=== PATIENT | female | born 1950 | race Two or more races ===

== ENCOUNTER 2017-02-15 06:36 | Day surgery (SDC) | payer MEDICARE, MEDICAID ==
[2017-02-15 06:58] VITALS: BMI 23.5
[2017-02-15 07:16] VITALS: TEMP 97.8
[2017-02-15 08:48] VITALS: O2SAT 100
[2017-02-15 09:28] VITALS: RESP 14
[2017-02-15 09:58] VITALS: BP 145/74; PULSE 60
[2017-02-15] MEDS ORDERED: Propofol 10 mg/ml Inj (20 ML) ONE (10:45)
== END 2017-02-15 10:20 | disposition home or self-care (01) ==
LOC: C.ENDO 06:36
PROVIDERS: ATTEND Internal Medicine
DX: D13.6 Benign neoplasm of pancreas (principal)
CPT/HCPCS: 43259; J2704

== ENCOUNTER 2017-03-29 06:10 | Day surgery (SDC) | payer MEDICARE, MEDICAID ==
[2017-03-29] MEDS ORDERED: Propofol 10 mg/ml Inj (20 ML) ONE ×3 (09:03→10:04)
[2017-03-29] MEDS ORDERED: Lidocaine Hydrochloride 5 ML INJ ONE (09:04)
[2017-03-29] MEDS ORDERED: Methylene Blue 10 mg/mL(10ml) IV ONE (09:26)
[2017-03-29 10:39] VITALS: TEMP 97.1; O2SAT 100
[2017-03-29 11:57] VITALS: BP 140/50; PULSE 63; RESP 16
== END 2017-03-29 11:15 | disposition home or self-care (01) ==
LOC: C.ENDO 06:10
PROVIDERS: ATTEND Internal Medicine
DX: Z12.11 Encounter for screening for malignant neoplasm of colon (principal); K63.5 Polyp of colon; K57.30 Diverticulosis of large intestine without perforation or abscess without bleeding; K64.8 Other hemorrhoids; Q43.8 Other specified congenital malformations of intestine
CPT/HCPCS: 45380; 45381; 45385; 88305; J2704

== ENCOUNTER 2017-09-27 06:14 | Day surgery (SDC) | payer MEDICARE, MEDICAID ==
[2017-09-27] MEDS ORDERED: Propofol 10 mg/ml Inj (20 ML) ONE ×2 (08:15→08:37)
[2017-09-27] MEDS ORDERED: Lidocaine Hydrochloride 5 ML INJ ONE (08:28)
[2017-09-27 09:27] VITALS: O2SAT 100
[2017-09-27 09:57] VITALS: PULSE 64
[2017-09-27 10:38] VITALS: BP 116/74; RESP 14; TEMP 96.9
== END 2017-09-27 10:20 | disposition home or self-care (01) ==
LOC: C.ENDO 06:14
PROVIDERS: ATTEND Internal Medicine
DX: Z12.11 Encounter for screening for malignant neoplasm of colon (principal); K57.30 Diverticulosis of large intestine without perforation or abscess without bleeding; K64.8 Other hemorrhoids; K63.89 Other specified diseases of intestine; Z86.010 Personal history of colon polyps; D13.6 Benign neoplasm of pancreas; Z98.890 Other specified postprocedural states; Z90.710 Acquired absence of both cervix and uterus
CPT/HCPCS: 45380; 45381; 45385; 45388; 88305; 88342; J2704